=== PATIENT | female | born 1995 | race Caucasian/White ===

== ENCOUNTER 2017-10-08 01:30 | Outpatient (CLI) | payer OTHER | END 2017-10-08 14:50 | disposition home or self-care (01) | LOC: OBS/DEL 01:30 | DX: O60.03 Preterm labor without delivery, third trimester (principal); O26.893 Other specified pregnancy related conditions, third trimester; N23 Unspecified renal colic; R31.9 Hematuria, unspecified; Z34.03 Encounter for supervision of normal first pregnancy, third trimester ==

== ENCOUNTER 2017-10-14 21:13 | Outpatient (CLI) | payer OTHER ==
[2017-10-14] MEDS ORDERED: PRENATAL TABLE1 EAC1 PO (22:00)
[2017-10-16] MEDS ORDERED: KEFLEX500 MG PO (14:12)
== END 2017-10-16 18:32 | disposition home or self-care (01) ==
LOC: OBS/DEL 21:13
DX: O23.43 Unspecified infection of urinary tract in pregnancy, third trimester (principal); O60.03 Preterm labor without delivery, third trimester; Z34.03 Encounter for supervision of normal first pregnancy, third trimester

== ENCOUNTER 2017-12-10 00:07 | Outpatient (CLI) | payer OTHER ==
[~2017-12-10 00:07] MED LIST: KEFLEX500 MG PO; PRENATAL TABLE1 EAC1 PO
== END 2017-12-11 17:00 | disposition home or self-care (01) ==
LOC: OBS/DEL 00:07
DX: O26.893 Other specified pregnancy related conditions, third trimester (principal); R10.2 Pelvic and perineal pain; O47.1 False labor at or after 37 completed weeks of gestation; Z34.03 Encounter for supervision of normal first pregnancy, third trimester

== ENCOUNTER 2017-12-20 00:07 | Inpatient (IN) | payer OTHER ==
[~2017-12-20] VITALS: Ht 160 cm; Wt 63.5 kg
== END 2017-12-22 18:39 | disposition home or self-care (01) | DRG 775 ==
LOC: LDR 00:07 → OB/GYN 00:07
PROC: 0HQ9XZZ Repair Perineum Skin, External Approach (ICD-10-PCS; principal; 2017-12-20)
PROC: 10E0XZZ Delivery of Products of Conception, External Approach (ICD-10-PCS; 2017-12-20)
PROC: 4A1HXCZ Monitoring of Products of Conception, Cardiac Rate, External Approach (ICD-10-PCS; 2017-12-20)
DX: O70.0 First degree perineal laceration during delivery (principal); Z3A.39 39 weeks gestation of pregnancy; Z37.0 Single live birth; Z22.330 Carrier of Group B streptococcus

== ENCOUNTER 2024-01-13 15:00 | Outpatient (CLI) | payer OTHER | END 2024-01-13 15:02 | disposition home or self-care (01) | LOC: PRENATAL 15:00 | PROVIDERS: ATTEND Obstetrics & Gynecology Maternal & Fetal Medicine | DX: O35.3XX0 Maternal care for (suspected) damage to fetus from viral disease in mother, not applicable or unspecified (principal); O44.00 Complete placenta previa NOS or without hemorrhage, unspecified trimester; Z3A.20 20 weeks gestation of pregnancy ==

== ENCOUNTER 2024-04-14 14:38 | Outpatient (CLI) | payer OTHER | END 2024-04-14 14:39 | disposition home or self-care (01) | LOC: PRENATAL 14:38 | PROVIDERS: ATTEND Obstetrics & Gynecology Maternal & Fetal Medicine | DX: O26.849 Uterine size-date discrepancy, unspecified trimester (principal); O36.8199 Decreased fetal movements, unspecified trimester, other fetus; Z3A.33 33 weeks gestation of pregnancy ==